=== PATIENT | female | born 1995 ===

== ENCOUNTER 2024-12-16 11:52 | Day surgery (SDC) | payer OTHER ==
[2024-12-08 13:35] LABS: HEMATOCRIT 42.9 % (36.0-45.00); HEMOGLOBIN 14.2 g/dL (12.0-15.00); MEAN CELL VOLUME 95.1 fL (80.00-100.00); MEAN CORPUSCULAR HEMOGLOBIN 31.6 pg (27.00-32.0); MEAN CORPUSCULAR HGB CONC 33.2 g/dl (32.0-36.0); PLATELET COUNT 250 K/uL (150-450); RED BLOOD COUNT 4.51 M/uL (4.00-6.00); RED CELL DISTRIBUTION WIDTH 12.4 % (11.5-14.5); URINE APPEARANCE Clear; URINE BILIRRUBIN Negative (NEGATIVE); URINE BLOOD Negative; URINE COLOR Yellow; URINE GLUCOSE Negative (NEGATIVE); URINE KETONE 15 (NEGATIVE); URINE LEUKOCYTE Negative; URINE NITRATE Negative; URINE PROTEIN Negative (NEGATIVE); URINE UROBILINOGEN 0.2 E.U./dl
[2024-12-08 13:39] LABS: URINE BACTERIA 14.6 uL (0.0-1933); URINE RBC 5.3 uL (0.0-20.8); URINE WBC 4.1 uL (0.0-23.2)
[2024-12-08 13:52] LABS: INR 1.01; PARTIAL THROMBOPLASTIN TIME 28.9 SECONDS (22.0-34.0)
[2024-12-08 13:58] LABS: URINE CAST 0.14 uL (0.0-1.40)
[2024-12-08 16:07] LABS: ALBUMIN 4.7 gm/dL (3.4-5.0); BILIRUBIN TOTAL 0.6 mg/dL (0.3-1.2); CALCIUM 9.1 mg/dL (8.5-10.1); CREATININE SERUM 0.62 mg/dL (0.55-1.02); GFR 113.02; POTASSIUM 3.67 mEq/L (3.5-5.1); TOTAL PROTEIN 7.7 gm/dL (6.4-8.2)
[2024-12-16] MEDS ORDERED: POVIDONE-IODINE 118 ML BOTT TOP ONE (13:01)
[2024-12-16] MEDS ORDERED: MORPHINE SULFATE 4 MG/ML VIAL IV PRN (14:00)
[2024-12-16] MEDS ORDERED: PROMETHAZINE HCL 25 MG/ML AMPUL IV PRN (14:15)
[2024-12-16] MEDS ORDERED: MORPHINE SULFATE 4 MG/ML VIAL IV ONE (15:25)
[2024-12-16] MEDS ORDERED: ONDANSETRON HCL 2 MG/ML VIAL IV ONE (15:25)
[2024-12-16] MEDS ORDERED: ONDANSETRON HCL 2 MG/ML VIAL ONE (15:27)
== END 2024-12-16 16:20 | disposition home or self-care (01) ==
LOC: CIR.AMB 11:52
PROVIDERS: ATTEND Student in an Organized Health Care Education/Training Program
DX: T83.89XA Other specified complication of genitourinary prosthetic devices, implants and grafts, initial encounter (principal); Z30.433 Encounter for removal and reinsertion of intrauterine contraceptive device